=== PATIENT | female | born 1950 | race Caucasian/White ===

== ENCOUNTER 2020-11-22 16:58 | Inpatient (IN) | payer OTHER ==
[~2020-11-22] VITALS: Ht 172.7 cm; Wt 84.4 kg
[2020-11-22 18:24] VITALS: BP 175/81
[2020-11-22] MEDS ORDERED: OXYBUTYNIN CHLOR5 M1 PO (19:54)
[2020-11-22] MEDS ORDERED: METOPROLOL SUCC50 MG PO (19:56)
[2020-11-22] MEDS ORDERED: HYDROCHLOROTHIA25 M2 PO (19:57)
[2020-11-22] MEDS ORDERED: ATORVASTATIN CA20 MG PO (19:59)
[2020-11-22] MEDS ORDERED: AMLODIPINE-BEN1 EAC4 PO (19:59)
[2020-11-22 20:05] VITALS: BP 203/86
--- NOTE | 2020-11-22 20:08 | NUR ---
ASSUMED CARE OF PT AT APPROX 1800 FROM [facility] D/T UNSTABLE ANGINA. SETTLED PT AND ORIENTED HER TO THE ROOM. PASS THE REPORT TO NOC NURSE.
[2020-11-22 21:56] LABS: HEMATOCRIT 36.2 % (37.0-47.0); HEMOGLOBIN 12.3 gm/dL (12.0-15.0); MCH 29.1 pg (26.0-34.0); MCHC 34.1 g/dL (28.0-37.0); MCV 85.2 fL (80.0-100.0); RBC 4.24 mil/uL (4.20-5.00); RDW 14.1 % (10.5-14.5); WBC 8.9 thou/uL (4.0-11.0)
[2020-11-22 22:04] LABS: PROTIME 10.2 Seconds (9.3-11.4)
[2020-11-22 22:06] LABS: TROPONIN-I <0.06 ng/mL (<0.06)
[2020-11-22 22:22] LABS: CHOLESTEROL 278 mg/dL (<200); HDL CHOLESTEROL 41 mg/dL (>40); TC:HDL 6.8 Ratio (Not establshd); TRIGLYCERIDE 603 mg/dL (<150); VLDL 121 mg/dL (<40)
[2020-11-22 22:34] LABS: SERUM ASSESSMENT Moderate Lipemia
[2020-11-22 23:34] VITALS: BP 181/84
[2020-11-23] VITALS (14 sets, daily range): BP systolic 149–207; BP diastolic 65–109
[2020-11-23 04:35] LABS: ANION GAP 14 mmol/L (7-16); BUN 39 mg/dL (7-18); CALCIUM 9.2 mg/dL (8.5-10.1); CHLORIDE 104 mmol/L (98-107); CO2 26 mmol/L (21-32); CREATININE 1.6 mg/dL (0.6-1.0); GLUCOSE 133 mg/dL (74-106); SODIUM 144 mmol/L (136-145)
[2020-11-23 04:44] LABS: MAGNESIUM 2.3 mg/dL (1.8-2.4); TROPONIN-I <0.06 ng/mL (<0.06)
[2020-11-23 04:58] LABS: HEMATOCRIT 35.2 % (37.0-47.0); HEMOGLOBIN 12.1 gm/dL (12.0-15.0); MCH 29.1 pg (26.0-34.0); MCHC 34.3 g/dL (28.0-37.0); RBC 4.14 mil/uL (4.20-5.00); RDW 13.9 % (10.5-14.5)
[2020-11-23 05:01] LABS: POTASSIUM 2.9 mmol/L (3.5-5.1)
--- NOTE | 2020-11-23 05:05 | NUR ---
PT ADMITTED YESTERDAY 11/22, FROM [facility] WITH EPISODE OF ANGINA. NO EPISODE OF CHEST PAIN OVERNIGHT. NOTED PATIENT TO RUN FREQUENT PVCs. EKG OBTAIN, NORMAL. MAG NORMAL,POTASSIUM 2.9, WILL REPLACE POTASSIUM. PT ALSO ON HEPARIN DRIP. IT INDEPENDENT WITH AMBULATION. VOIDING PER THE BATHROOM. ORIENTED TO ROOM. WILL CONTINUE TO MONITOR.
--- NOTE | 2020-11-23 07:18 | EKG ---
[place] [address] [facility] [place] [address] ELECTROCARDIOGRAM REPORT Name: DYLON HEALY Room #: 209-P ADM IN M.R.#: [id number] Admission: 11/22/20 Attend Phys: Joseph Hodgson MD Discharge: Date of : 54 Report #: [id number] [facility] Test Date: 2020-11-23 Test Time: 03:00:02 Pat Name: DYLON HEALY Department: Room: 209 P Gender: F Pocket Closer: AN01 : 1950 Requested By: Gloria Booker Order Number: [id number] MD: Edwar Velazco Measurements Intervals [place] Rate: 75 P: 56 LA: 152 QRS: 20 QRSD: 111 T: -7 QT: 424 QTc: 474 Interpretive Statements Sinus rhythm Ventricular premature complex Borderline repolarization abnormality No previous ECG available for comparison Electronically Signed On 11-23-2020 7:18:36 PARTS SALES ASSOCIATE by Edwar Velazco [email or web address] <ELECTRONICALLY SIGNED> By: Edwar Velazco MD, [facility] 11/23/20 0718 9 0300 Edwar Velazco MD, FACC /EPI
--- NOTE | 2020-11-23 10:39 | 2DMMODE ---
[facility] [place] [place] [address] 2 D/M-MODE ECHOCARDIOGRAM Name: DYLON HEALY Room #: 209-P ADM IN M.R.#: [id number] Admission: 11/22/20 Attend Phys: Joseph Hodgson MD Discharge: Date of : 54 Report #: [id number] THIS REPORT FOR: cc: FAM - Family physician unknown FAM - Family physician unknown Joss Young MD ~ APPROVED REPORT Study performed: 11/23/2020 08:08:46 EXAM: Comprehensive 2D, Doppler, and color-flow Echocardiogram Patient Location: Bedside Room #: 209 Status: routine BSA: 1.98 HR: 83 bpm BP: 181/92 mmHg Rhythm: Bigeminy Other Information Study Quality: Adequate Indications Arrhythmia Chest Pain Hypertension/HDD 2D Dimensions RVDd: 38.69 mm IVSd: 11.94 (7-11mm) LVOT Diam: 18.89 (18-24mm) LVDd: 53.51 mm PWd: 13.42 (7-11mm) Ascending Ao: 33.07 (22-36mm) LVDs: 36.70 (25-40mm) Aortic Root: 32.28 mm IVC: 19.00 mm Volumes Left Atrial Volume (Systole) Single Plane 4CH: 50.31 mL Single Plane 2CH: 36.76 mL LA ESV Index: 24.00 mL/m2 Aortic Valve AoV Peak Paolo.: 1.74 m/s AO Peak Gr.: 12.14 mmHg LVOT Max P.06 mmHg LVOT Max V: 1.23 m/s [facility] [address] [place] [address] 2 D/M-MODE ECHOCARDIOGRAM Name: DYLON HEALY Room #: 209-P [facility] IN ..#: [id number] Admission: 11/22/20 Attend Phys: Joseph Hodgson MD Discharge: Date of : 54 Report #: [id number] SEAMUS Vmax: 1.98 cm2 Mitral Valve E/A Ratio: 0.8 MV Decel. Time: 220.30 ms MV E Max Paolo.: 0.72 m/s MV A Paolo.: 0.96 m/s MV PHT: 63.89 ms IVRT: 119.95 ms Pulmonary Valve PV Peak Paolo.: 1.07 m/s PV Peak Gr.: 4.56 mmHg Pulmonary Vein P Vein S: 0.52 m/s P Vein A: 0.33 m/s P Vein D: 0.48 m/s P Vein A Dur.: 101.5 msec P Vein S/D Ratio: 1.08 Tricuspid Valve TR Peak Paolo.: 2.99 m/s TR Peak Gr.: 35.86 mmHg PA Pressure: 41.00 mmHg Left Ventricle The left ventricle is normal size. There is normal LV segmental wall motion. Mild concentric left ventricular hypertrophy. The left ventricular systolic function is normal. The left ventricular ejection fraction is within the normal range. LVEF is 55-60%. Grade I - abnormal relaxation pattern. Right Ventricle The right ventricle is normal size. The right ventricular systolic function is normal. Atria The left atrium size is normal. The right atrium size is normal. Aortic Valve The aortic valve is normal in structure. No aortic regurgitation is present. There is no aortic valvular stenosis. Mitral Valve The mitral valve is normal in structure. There is no mitral valve regurgitation noted. No evidence of mitral valve stenosis. [facility] [place] [address] 2 D/M-MODE ECHOCARDIOGRAM Name: DYLON HEALY Room #: 209-P ADM IN .R.#: [id number] Admission: 11/22/20 Attend Phys: Joseph Hodgson MD Discharge: Date of : 54 Report #: [id number] Tricuspid Valve The tricuspid valve is normal in structure. There is mild tricuspid regurgitation. Estimated PAP 41 mmHg. Pulmonic Valve The pulmonary valve is normal in structure. There is no pulmonic valvular regurgitation. Great Vessels The aortic root is normal in size. IVC is normal in size and collapses >50% with inspiration. Pericardium There is no pericardial effusion. <Conclusion> The left ventricle is normal size. Mild concentric left ventricular hypertrophy. The left ventricular systolic function is normal. Grade I - abnormal relaxation pattern. The right ventricle is normal size. The left atrium size is normal. The aortic valve is normal in structure. There is no mitral valve regurgitation noted. There is mild tricuspid regurgitation. Estimated PAP 41 mmHg. <ELECTRONICALLY SIGNED> By: Joss Young MD 11/23/20 1038 1038 1038 Joss Young MD /INF
[2020-11-23 14:45] LABS: MAGNESIUM 2.4 mg/dL (1.8-2.4)
[2020-11-23 14:51] LABS: POTASSIUM 3.9 mmol/L (3.5-5.1)
--- NOTE | 2020-11-23 15:03 | EKG ---
[address] [address] ELECTROCARDIOGRAM REPORT Name: DYLON HEALY Room #: 209-P ADM IN M.R.#: [id number] Admission: 11/22/20 Attend Phys: Joseph Hodgson MD Discharge: Date of : 54 Report #: [id number] [facility] Test Date: 2020-11-23 Test Time: 02:58:59 Pat Name: DYLON HEALY Department: Room: 209 P Gender: F [employer] Lead Hand: AN01 : 1950 Requested By: Jsoeph Hodgson Order Number: [id number] : Edwar Velazco Measurements Intervals [place] Rate: 80 P: 55 VT: 144 QRS: 20 QRSD: 104 T: -11 QT: 423 QTc: 488 Interpretive Statements Sinus rhythm Borderline repolarization abnormality Borderline prolonged QT interval No previous ECG available for comparison Electronically Signed On 11-23-2020 15:03:07 LOADING UNIT OPERATOR POWDER CHARGING by Edwar Velazco [email or web address] <ELECTRONICALLY SIGNED> By: Edwar Velazco MD, [facility] 11/23/20 1503 0258 0258 Edwar Velazco MD, FACC /EPI
[2020-11-23 15:26] LABS: URINE BILIRUBIN NEGATIVE (Negative); URINE BLOOD 3+ (Negative); URINE CLARITY CLEAR; URINE COLOR YELLOW; URINE GLUCOSE-RANDOM* NEGATIVE (Negative); URINE KETONES NEGATIVE (Negative); URINE LEUKOCYTES-REFLEX NEGATIVE (Negative); URINE NITRITE-REFLEX NEGATIVE (Negative); URINE PROTEIN (DIPSTICK) 2+ (Negative); URINE SPECIFIC GRAVITY 1.015 (1.005-1.035); URINE UROBILINOGEN 0.2 E.U./dl (0.2-1.0)
[2020-11-23 15:39] LABS: URINE WBC-REFLEX 0-5 Rare /HPF (0-5)
[2020-11-23 15:40] LABS: BACTERIA-REFLEX >30 Many /HPF (None Seen); CASTS None Seen /LPF (None Seen); SQUAMOUS 4-10 Moderate /LPF (0-3)
[2020-11-23 15:42] LABS: CRYSTALS None Seen /LPF (None Seen)
--- NOTE | 2020-11-23 15:47 | CATHLAB ---
[facility] [place] [address] [place] [address] INVASIVE PROCEDURE REPORT Name: DYLON HEALY Room #: 209-P ADM IN M.R.#: [id number] Admission: 11/22/20 Attend Phys: Joseph Hodgson MD Discharge: Date of : 54 Report #: [id number] THIS REPORT FOR: cc: FAM - Family physician unknown FAM - Family physician unknown Joss Young MD ~ APPROVED REPORT Study performed: 11/23/2020 11:48:59 Patient Details Patient Status: In-Patient Room #: 209 The patient is a 70 year-old female Event Personnel Joss Young Sane Rn, Gregory Slater RN RN, Eva Casey RTR, METAL TRIM ERECTOR Monitor, Ritu Huggins Procedures Performed Art Access - R femoral artery* Left Heart Cath w/or w/o Coronaries 0307985 C FFR [id number] FFR 51614 Initial Mod Sed Same Phys/QHP Gr5y 248023 32966 Mod Sed Same Phys/QHP Ea 747455 Hemostasis w/ Mynx Indication Arrhythmia, Dyspnea, Unstable angina , Chest pain Risk Factors Hypercholesterolemia, Hypertension Procedure Narrative The Right Groin^ was infiltrated with 1% Lidocaine subcutaneous anesthesia. A PINNACLE 4FR Sheath #[id number] sheath was inserted into the RFA^. Coronary angiography was performed using coronary diagnostic catheters. The right coronary system was accessed and visualized with a JR4 catheter. The left coronary system was accessed and visualized with a JL4 catheter. The left ventricle was accessed and visualized with a JR4 catheter. Left ventricular/Aortic Valve gradient assessed via catheter pullback. Pre-demployment femoral angiogram was performed . Closure device was deployed with a 6 Fr MYNXGRIP 6/7F #[id number]. The patient tolerated the procedure well and there were no complications associated with the procedure. There was no hematoma. [facility] [address] [place] [address] INVASIVE PROCEDURE REPORT Name: DYLON HEALY Room #: 209-P [facility] IN ..#: [id number] Admission: 11/22/20 Attend Phys: Joseph Hodgson MD Discharge: Date of : 54 Report #: [id number] Intraoperative Conscious Sedation Sedation start time: 12:03 Case end Time: 12:42 Fentanyl 50 mcg Versed 1 mg Fluoro Time: 3.49 minutes Dose: DAP 4902.20 cGycm2 636 mGy Contrast Type and Amount: Visipaque 90 ml Coronary Angiography The patient's coronary anatomy is right dominant. Diagnostic Cath Left Main Left main artery is a large-caliber vessel, patent with no flow-limiting lesions. LAD The LAD is a moderate-sized caliber vessel, traverses the anterior wall and wraps around the apex. There is a moderate stenosis in the midsegment, 40 to 50%. Diagonal 1 This is a small to moderate-sized caliber vessel, patent with no flow-limiting lesions. Diagonal 2 This is a small to moderate-sized caliber vessel, patent with no flow-limiting lesions. Circumflex The left circumflex artery is a moderate-sized caliber vessel, patent with no flow-limiting lesions. OM1 This is a small to moderate-sized caliber vessel, patent with no flow-limiting lesions. OM2 This is a moderate-sized caliber vessel, patent with no flow-limiting lesions. Right Coronary This is a moderate to large caliber vessel, patent with no flow-limiting lesions. This is a dominant vessel. R PDA This is a moderate-sized caliber vessel, patent with no flow-limiting lesions. RPLV This is a moderate-sized caliber vessel, patent with no flow-limiting lesions. Left Ventriculography Left Ventriculography was not performed. Ejection Fraction was >55% based off patient's Echocardiogram. An LVEDP was measured and there is no gradient across the outflow tract. Hemodynamics The aortic pressure is 193/84 mmHg with a mean of 120 mmHg. The left ventricular pressure is 195/11 mmHg with a mean of mmHg. The left ventricular end diastolic pressure is 27 mmHg. PCI Technique [employer] [facility] [address] [place] [address] INVASIVE PROCEDURE REPORT Name: DYLON HEALY Room #: 209-P [facility] IN M.R.#: [id number] Admission: 11/22/20 Attend Phys: Joseph Hodgson MD Discharge: Date of : 54 Report #: [id number] [place] 6FR XB 3.5 #[id number] Guide Catheter was used to engage the ostium. A [place] Pressure Wire 175 cm [id number] Interventional Guidewire was used to cross the lesion. COMMENTS PRE FFR=1.00 POST FFR=.95 Conclusion 1. There is a moderate stenosis in the mid LAD. An IFR procedure was performed, nonischemic. 2. Right dominant system. 3. Normal LV systolic function. 4. Recommend risk factor management. <ELECTRONICALLY SIGNED> By: Joss Young MD 11/23/20 1547 1547 1547 Joss Young MD /INF
--- NOTE | 2020-11-23 16:59 | NUR ---
ASSUMED CARE AT CHANGE OF SHIFT. PT ALERTX4, DENIES SOB, YAHAIRA CHEST PAIN. PT WENT TO [facility] THIS MORNING WITH NO INTERVENTIONS REQUIRED. RIGHT GROIN SIGHT WITH MINX CLOSURE DEVICE INTACT, OFF BEDREST. ELEVATED BLOOD PRESSURE TREATED WITH PRN MEDICATIONS CONTINUE TO MONITOR. NO PLANS TO DC TODAY. UA SENT TO LAB. PT AB KAZ WITH BATHROOM PRIVLEDGES. HEPARIN STOPPED POST HEART CATH. FLUIDS INFUSEING PER ORDERS. CALL LIGHT AND PERSONAL ITEMS IN REACH.
[2020-11-24 03:19] LABS: HEMATOCRIT 33.8 % (37.0-47.0); HEMOGLOBIN 11.4 gm/dL (12.0-15.0); MCHC 33.7 g/dL (28.0-37.0); RBC 3.93 mil/uL (4.20-5.00)
[2020-11-24 03:26] LABS: CALCIUM 9.1 mg/dL (8.5-10.1); CREATININE 1.8 mg/dL (0.6-1.0); POTASSIUM 3.5 mmol/L (3.5-5.1)
--- NOTE | 2020-11-24 03:50 | NUR ---
CARE ASSUMED 1900. PT ALERT AND ORIENTED. bP BETTER CONTROLLED. RIGHT GROIN CLEAN DRY AND INTACT S/P CATH w/o INTERVENTION. DENIES PAIN, NO EPISODES OF CHEST PAIN, NAUSEA OR VOMITING. WILL CONTINUE TO MONITOR AND FOLLOW POC.
[2020-11-24 03:54] VITALS: BP 145/71
[2020-11-24 07:40] VITALS: BP 170/87
[2020-11-24] MEDS ORDERED: CARVEDILOL25 MG PO ×2 (10:46→15:39)
[2020-11-24] MEDS ORDERED: NORVASC10 MG PO ×2 (10:47→15:39)
[2020-11-24] MEDS ORDERED: ASPIR 8181 MG PO (10:48)
[2020-11-24 11:15] VITALS: BP 170/87
== END 2020-11-24 12:57 | disposition home or self-care (01) | DRG 287 ==
LOC: 2N 16:58
PROVIDERS: Internal Medicine Cardiovascular Disease; Nurse Practitioner; Nurse Practitioner Family; ADMIT Hospitalist; ATTEND Hospitalist
DX: I20.0 Unstable angina (principal); N17.9 Acute kidney failure, unspecified; I16.0 Hypertensive urgency; E78.5 Hyperlipidemia, unspecified; N18.9 Chronic kidney disease, unspecified; R00.8 Other abnormalities of heart beat; N32.81 Overactive bladder; I07.1 Rheumatic tricuspid insufficiency; I12.9 Hypertensive chronic kidney disease with stage 1 through stage 4 chronic kidney disease, or unspecified chronic kidney disease; Z79.899 Other long term (current) drug therapy; Z90.49 Acquired absence of other specified parts of digestive tract; Z90.710 Acquired absence of both cervix and uterus; Z98.891 History of uterine scar from previous surgery
CPT/HCPCS: 10081